=== PATIENT | female | born 1980 | race Caucasian/White ===

== ENCOUNTER → 2017-08-07 | Outpatient (CLI) | payer OTHER ==
[~2017-08-07] MED LIST: BIRTH CONTROL PILLS; HYDACE5 PO; IBUP800 PO; META800 PO
[2017-08-08 10:34] LABS: Candida species (DNA Probe) Positive (NEGATIVE); G. vaginalis (DNA Probe) Negative (NEGATIVE); T. vaginalis (DNA Probe) Negative (NEGATIVE)
[2017-08-09 12:58] LABS: HPV Genotype 16 Not Detected (NOTDET); HPV Genotype 18 Not Detected (NOTDET)
[2017-08-16 12:09] LABS: HPV High Risk Other Not Detected (NOTDET)
== END ==
LOC: LAB SHORT 18:41 → LAB 18:41
PROVIDERS: Advanced Practice Midwife
DX: Z01.419 Encounter for gynecological examination (general) (routine) without abnormal findings (principal); N76.0 Acute vaginitis
CPT/HCPCS: 87480; 87510; 87624; 87660; G0123

== ENCOUNTER 2022-02-09 06:19 | Inpatient (IN) | payer OTHER ==
[2022-02-08 09:51] LABS: BASOPHILS ABSOLUTE AUTO 0.15 K/mm3 (0.00-0.23); BASOPHILS PERCENT AUTO 2 % (0-2); EOSINOPHILS ABSOLUTE AUTO 0.68 K/mm3 (0.00-0.68); EOSINOPHILS PERCENT AUTO 7 % (0-6); Hematocrit 43.9 % (33.0-51.0); Hemoglobin 14.5 g/dL (11.5-16.0); IMMATURE GRAN ABSOLUTE AUTO 0.03 K/mm3 (0.00-0.10); IMMATURE GRAN PERCENT AUTO 0 % (0-1); LYMPHOCYTES ABSOLUTE AUTO 1.96 K/mm3 (0.84-5.20); LYMPHOCYTES PERCENT AUTO 20 % (21-46); MONOCYTES PERCENT AUTO 6 % (4-13); Mean Corpuscular HGB 29.3 pg (26.0-34.0); Mean Corpuscular Volume 89 fL (80-100); Mean Platelet Volume 11.2 fL (9.1-12.4); NEUTROPHILS ABSOLUTE AUTO 6.29 K/mm3 (1.96-9.15); NEUTROPHILS PERCENT AUTO 65 % (41-73); Platelet Count 301 K/mm3 (150-400); RDW Coefficient Variation 12.1 % (11.7-14.2); RDW Standard Deviation 39.1 fL (35.1-46.3); Red Blood Cell Count 4.95 M/mm3 (3.80-5.20); White Blood Cell Count 9.71 K/mm3 (4.00-11.30)
[2022-02-08 10:12] LABS: Bun/Creatinine Ratio 19.1 (12.0-20.0); Calcium, Blood 9.2 mg/dL (8.5-10.1); Creatinine, Blood 0.78 mg/dL (0.40-1.00); Potassium, Blood 3.9 mmol/L (3.5-5.5)
[~2022-02-09] VITALS: Ht 157.5 cm; Wt 86.4 kg
--- NOTE | 2022-02-09 07:03 | NUR ---
Ambulatory in Day Surgery History, Chart, Medications and Allergies reviewed before start of procedure. Lungs clear T/O to Auscultation. Pre-Op teaching done. Pt verbalizes understanding.
--- NOTE | 2022-02-09 08:24 | NUR ---
02/09/22 0824 Desi Johns PLACED BY MAITE ALCANTARA, AFTER DRAPES PLACED, PRIOR TO SURGERY START.
--- NOTE | 2022-02-09 10:48 | NUR ---
DR. WALTER AT BS. PT STATES SHE FEELS LIKE SHE IS RASPY BUT NOT TIGHT IN THE LUNGS. POC DISCUSSED. CHEST X-RAY PENDING. PT TO STAY OVER NIGHT FOR OBSERVATION, INCENTIVE SPIROMETER, POSSIBLY MORE BREATHING TREATMENTS.
--- NOTE | 2022-02-09 12:10 | NUR ---
PATIENT ARRIVED TO UNIT VIA GURNEY, STOOD AND AMBULATED TO BATHROOM W/O DIFFICULTY. MINIMAL VAGINAL BLEEDING NOTED. X4 LAP SITES TO ABDOMEN, C/D/I WITH DERMABOND. PATIENT REPORTS ABDOMINAL PAIN 5/10 AT THIS TIME. AMBULATED TO BED WELL WITH MINIMAL ASSISTANCE, K PAD TO BACK. BLOOD PRESSURE REMAINS LOW, PATIENT ASYMPTOMATIC. DENIES BEING LIGHTHEADED OR DIZZY. ORIENTED TO ROOM AND CALL LIGHT.
--- NOTE | 2022-02-09 13:16 | NUR ---
DR ALMANZA GAVE VERBAL ORDERS TO CONSULT HOSPITALIST FOR POSSIBLE ALLERGIC REACTION. TRAINING MGR ENTERED CONSULT AND SPOKE WITH DR ARMANDO, RECEIVED VERBAL ORDERS FOR IV BENADRYL, IV PEPCID, IV SOLUMEDROL, & IV FLUIDS. DR ARMANDO CAME TO BEDSIDE TO ASSESS PATIENT. VITAL SIGNS TAKEN Q15 MINUTES, SEE DOCUMENTATION. PATIENT REMAINS ASYMPTOMATIC OF LOW BP, DENIES SOB/DIFFICULTY BREATHING, ON ROOM AIR. CALL LIGHT IN REACH.
--- NOTE | 2022-02-09 14:13 | NUR ---
PATIENTS BLOOD PRESSURE LOWER AT 75/54 WITH A RECHECK OF 74/51, DR ARMANDO NOTIFIED, GAVE TELEPHONE ORDERS TO GIVE ANOTHER LITER OF FLUIDS WIDE OPEN AND STATED HE WOULD ORDER LABS.
[2022-02-09 14:33] LABS: BASOPHILS ABSOLUTE AUTO 0.04 K/mm3 (0.00-0.23); BASOPHILS PERCENT AUTO 0 % (0-2); EOSINOPHILS ABSOLUTE AUTO 0.01 K/mm3 (0.00-0.68); EOSINOPHILS PERCENT AUTO 0 % (0-6); Hematocrit 41.3 % (33.0-51.0); Hemoglobin 13.2 g/dL (11.5-16.0); IMMATURE GRAN PERCENT AUTO 1 % (0-1); LYMPHOCYTES PERCENT AUTO 3 % (21-46); MONOCYTES ABSOLUTE AUTO 0.16 K/mm3 (0.16-1.47); MONOCYTES PERCENT AUTO 1 % (4-13); Mean Corpuscular HGB 29.3 pg (26.0-34.0); Mean Corpuscular Volume 92 fL (80-100); Mean Platelet Volume 11.3 fL (9.1-12.4); NEUTROPHILS ABSOLUTE AUTO 17.34 K/mm3 (1.96-9.15); NEUTROPHILS PERCENT AUTO 95 % (41-73); Platelet Count 241 K/mm3 (150-400); RDW Coefficient Variation 12.1 % (11.7-14.2); RDW Standard Deviation 40.6 fL (35.1-46.3); White Blood Cell Count 18.25 K/mm3 (4.00-11.30)
[2022-02-09 14:53] LABS: Thyroid Stimulating Hormone 1.26 uIU/mL (0.360-4.800)
--- NOTE | 2022-02-09 15:11 | NUR ---
SEAMING MACHINE OPERATOR FEMI BURGOS WAS NOTIFIED BY DR ARMANDO TO TRANSFER PATIENT TO ICU. LIAN KAHN CALLED REPORT TO ICU. PATIENT WHEELED TO ICU VIA W/C. DR ALMANZA NOTIFIED.
[2022-02-09 15:16] LABS: Albumin, Blood 2.9 g/dL (3.4-5.0); Albumin/Globulin Ratio 1.2 (0.8-1.8); Bilirubin, Total 0.4 mg/dL (0.1-1.0); Bun/Creatinine Ratio 23.6 (12.0-20.0); Creatinine, Blood 0.55 mg/dL (0.40-1.00); Globulin, Blood 2.4 g/dL (2.2-4.0); Potassium, Blood 3.9 mmol/L (3.5-5.5); Total Protein, Blood 5.3 g/dL (6.4-8.2)
[2022-02-09 15:19] LABS: Calcium, Blood 7.2 mg/dL (8.5-10.1)
--- NOTE | 2022-02-09 15:45 | NUR ---
PT ARRIVES TRANSFER FROM SURGICAL FLOOR FOR HIGHER LEVEL OF CARE AFTER PERSISTENT HYPOTENSION S/P ROBOTIC LAPROSCOPIC HYSTERECTOMY. PER PREVIOUS RN, SHE WAS INITIALLY GOING TO BE DC'd AFTER THE PROCEDURE BUT IN PACU, SHE BEGAN TO HAVE RALES, CHEST TIGHTNESS, GIVEN BENADRYL & NEB Tx. ONCE ON SURGICAL FLOOR, PT BEGAN TO HAVE REDNESS TO NECK & CHEST, C/O BLURRED VISION & W/ DEC SBP. SHE WAS TREATED FOR ANAPHYLAXIS W/ IV BENADRYL, PEPCID, SOLUMEDROL, SC EPI, & x2 FLUID BOLUSES W/OUT SIGNIFICANT POSITIVE CHANGE, PROMPTING HER ARRIVAL TO ICU. UPON ARRIVAL PT IS BROUGHT OVER IN WC, TRANSFERS TO BED W/OUT DIFF. APPEARS SLIGHTLY PALE BUT IS A&O, FULLY PARTICIPATES IN ASSESSMENTS & SPEAKS IN FULL SENTENCES. +CONT BUZZSAW OPERATOR, NSR W/ RATE 80s, MAP 60. AFEBRILE. DENIES NAUSEA. PAIN 4/10. REPORTS DIFF W/ VOIDING AFTER SURGERY. MARIAELENA-PAD PLACED UPON ADMIT TO SURGICAL FLOOR IS CLEAN & DRY. PT REPORTS ONLY SCANT BLEEDING POST VOIDING. x4 LAPAROSCOPY SITES CLOSED W/ DERMABOND, APPEAR C/D/I.
--- NOTE | 2022-02-09 16:11 | NUR ---
BLADDER SCAN RESULTS 325mls. REPORTS A "PRESSURE" TO SUPRAPUBIC AREA. PT ABLE TO AMBULATE TO TOILET W/ NO S/Sx OF PAIN, SOB. 200ml UOP. PT REPORTS RELIEF OF PRESSURE. MAP CONTINUES TO BE >65mmHg.
--- NOTE | 2022-02-09 16:30 | NUR ---
UPDATE: DR ALMANZA @ BEDSIDE FOR EVAL. DR ALMANZA ARRIVES TO ASSESS PT AFTER TRANSFER TO ICU. STS THE PT PRESENTS GREAT POST OP. RECENT LAB DRAW GIVES EVIDENCE TO ANAPHYLAXIS, SHE ENCOURAGES PT TO SEE AN SUPERVISOR ROD PLACING ONCE DC'd TO FIND WHAT CAUSED THE REACTION. PT RECEIVES WELL. LEVOPHED ARRIVES @ BEDSIDE W/ PARAMETERS TO INITIATE FOR MAP <65. PT CONTINUES TO BE ASYMPTOMATIC OF HYPOTENSION, VSS, PWD, AMBULATES TO TOILET W/OUT DISTRESS OR BASELINE VS CHANGES. WILL CONTINUE TO MONITOR CLOSELY FOR ACUTE CHANGES.
[2022-02-09 16:51] LABS: Source, Urine Clean Catch
[2022-02-09 16:59] LABS: Appearance, Urine Clear (Clear); Bilirubin, Urine Neg (Neg); Blood, Urine 5+ (Neg); Color, Urine Yellow (P-Yellow); Glucose Qualitative, Urine 2+ (Neg); Ketones, Urine Neg (Neg); Leukocyte Esterase, Urine Neg (Neg); Nitrite, Urine Neg (Neg); Protein, Urine Neg (Neg); Urobilinogen, Urine NORM (Normal)
--- NOTE | 2022-02-09 17:48 | NUR ---
DR MENDEZ CALLS FOR UPDATE ON PT's PROGRESSION. HE EXPLAINS THE PT DID HAVE SOFT BPs IN THE OR & WAS GIVEN PHENYLEPHRINE. HE SUSPECTS THE ROCURONIUM WAS THE INSULTING AGENT & PLACED IT ON THE PT's ALLERGY LIST. GIVEN # TO PRABHA, ADMITTING TURBINE TECHNICIAN, FOR FURTHER UPDATES.
[2022-02-09 18:13] LABS: Bacteria Few /hpf; Mucus Light (0-Heavy); Red Blood Cells, Urine 0-2 /hpf (0-2); Squamous Epithelial Cells Rare /hpf (Few); White Blood Cells, Urine 0-2 /hpf (0-5)
--- NOTE | 2022-02-09 19:03 | NUR ---
UPDATE: CRITICAL LAB RESULT LACTIC 4.6. UNRULY CALLED & UPDATED. ORDERS RECEIVED FOR 1L LR BOLUS x2 & TO INC MAINTENANCE FLUIDS TO 150ml/hr. ORDERS PLACED.
--- NOTE | 2022-02-09 21:12 | NUR ---
ASSUMED CARE AT 1900 PATIENT IS ALERT AND ORIENTED X4. 02 SATS >93% ON RA. DENIES SOB AT THIS TIME. HR SR 90s, BP HYPOTENSIVE WITH SYSTOLIC 70s-80s MAP IN THE 60s. 2L BOLUS LR GIVEN AND RATE INCREASED TO INF TO 150 MLS/HR. BP REMAINS HYPOTENSIVE. DENIES CP BUT SOME ABDOMINAL DISCOMFORT FROM GAS. UP TO TOILET SBA. ABDOMINAL INCISIONS WNL. CALL LIGHT IN REACH. SEE SHIFT ASSESSMENT FOR MORE INFORMATION.
[2022-02-09 21:57] LABS: BASOPHILS ABSOLUTE AUTO 0.02 K/mm3 (0.00-0.23); BASOPHILS PERCENT AUTO 0 % (0-2); EOSINOPHILS ABSOLUTE AUTO 0.01 K/mm3 (0.00-0.68); EOSINOPHILS PERCENT AUTO 0 % (0-6); Hematocrit 34.4 % (33.0-51.0); Hemoglobin 11.8 g/dL (11.5-16.0); IMMATURE GRAN ABSOLUTE AUTO 0.05 K/mm3 (0.00-0.10); IMMATURE GRAN PERCENT AUTO 0 % (0-1); LYMPHOCYTES ABSOLUTE AUTO 0.77 K/mm3 (0.84-5.20); LYMPHOCYTES PERCENT AUTO 5 % (21-46); MONOCYTES ABSOLUTE AUTO 0.54 K/mm3 (0.16-1.47); MONOCYTES PERCENT AUTO 3 % (4-13); Mean Corpuscular HGB 30.6 pg (26.0-34.0); Mean Corpuscular HGB Conc 34.3 g/dL (31.5-36.5); Mean Corpuscular Volume 89 fL (80-100); Mean Platelet Volume 11.5 fL (9.1-12.4); NEUTROPHILS ABSOLUTE AUTO 15.43 K/mm3 (1.96-9.15); NEUTROPHILS PERCENT AUTO 92 % (41-73); Platelet Count 254 K/mm3 (150-400); RDW Coefficient Variation 12.2 % (11.7-14.2); RDW Standard Deviation 39.8 fL (35.1-46.3); Red Blood Cell Count 3.86 M/mm3 (3.80-5.20); White Blood Cell Count 16.82 K/mm3 (4.00-11.30)
--- NOTE | 2022-02-10 01:51 | NUR ---
AFTER 2L BOLUS OF LR INFUSED PATIENT REMAINED HYPOTENSIVE. CALLED HOSPITALIST, LEVOPHED STARTED, OK TO USE IN PERIPHERAL IV FOR LOW DOSE, BLOOD CULTURES ORDERED AND DRAWN, AND REPEAT CBC DONE. CALLED DR. LEMONS AND ABDOINAL CT DONE.
[2022-02-10 03:44] LABS: BASOPHILS ABSOLUTE AUTO 0.05 K/mm3 (0.00-0.23); BASOPHILS PERCENT AUTO 0 % (0-2); EOSINOPHILS ABSOLUTE AUTO 0.01 K/mm3 (0.00-0.68); EOSINOPHILS PERCENT AUTO 0 % (0-6); Hematocrit 35.9 % (33.0-51.0); IMMATURE GRAN ABSOLUTE AUTO 0.22 K/mm3 (0.00-0.10); IMMATURE GRAN PERCENT AUTO 1 % (0-1); LYMPHOCYTES ABSOLUTE AUTO 1.11 K/mm3 (0.84-5.20); LYMPHOCYTES PERCENT AUTO 5 % (21-46); MONOCYTES ABSOLUTE AUTO 0.92 K/mm3 (0.16-1.47); MONOCYTES PERCENT AUTO 4 % (4-13); Mean Corpuscular HGB 29.9 pg (26.0-34.0); Mean Corpuscular HGB Conc 33.4 g/dL (31.5-36.5); Mean Corpuscular Volume 90 fL (80-100); Mean Platelet Volume 11.7 fL (9.1-12.4); NEUTROPHILS ABSOLUTE AUTO 21.22 K/mm3 (1.96-9.15); NEUTROPHILS PERCENT AUTO 90 % (41-73); Platelet Count 289 K/mm3 (150-400); RDW Coefficient Variation 12.3 % (11.7-14.2); RDW Standard Deviation 40.5 fL (35.1-46.3); Red Blood Cell Count 4.01 M/mm3 (3.80-5.20); White Blood Cell Count 23.53 K/mm3 (4.00-11.30)
[2022-02-10 04:11] LABS: Albumin, Blood 2.8 g/dL (3.4-5.0); Albumin/Globulin Ratio 1.2 (0.8-1.8); Bilirubin, Total 0.4 mg/dL (0.1-1.0); Calcium, Blood 8.3 mg/dL (8.5-10.1); Creatinine, Blood 0.59 mg/dL (0.40-1.00); Globulin, Blood 2.4 g/dL (2.2-4.0); Potassium, Blood 4.1 mmol/L (3.5-5.5); Total Protein, Blood 5.2 g/dL (6.4-8.2)
--- NOTE | 2022-02-10 05:55 | NUR ---
SHIFT SUMMARY PATIENT REMAINS ALERT AND ORIENTED X4. 02 SATS 93% ON RA WHILE SLEEPING, DENIES SOB. HR SR 70-90s, BP HYPOTENSIVE, LEVOPHED AT 2 MCG/MIN MOST THE NIGHT, TURNED OFF THIS AM HOWEVER BP TRENDING DOWN AGAIN. PATIENT UP TO TOILET, GOOD URINE OUTPUT. NO BLEEDING NOTICED. INCISIONS WNL. MEDICATED FOR ABDOMINAL PAIN PRN. INDEPENDENT WITH REPOSITIONING. CALL LIGHT IN REACH.
--- NOTE | 2022-02-10 11:00 | NUR ---
UPDATE: DR ALMANZA SIGNING OFF PT's SURGEON, DR ALMANZA CALLS & INFORMS THAT THE PT IS SURGICALLY STABLE, SHE HAD SIGNED OFF YESTERDAY. IF HOSPITALIST BELIEVES HER TO BE SAFE FOR DC HOME, SHE AGREES. DR SIMMONS, HOSPITALIST, CALLED & UPDATED ABOVE. SHE WILL PLACE DC ORDERS. PT UPDATED & WILL BE MADE READY FOR DC SHORTLY. VS REMAIN STABLE, NO ACUTE NEG CHANGES.
--- NOTE | 2022-02-10 12:00 | NUR ---
UPDATE FROM IRIS. DC ORDERS & NEW Rx PLACED. REPEAT LACTIC DRAWN, IF IT IS TRENDING DOWN, PT WILL BE DC HOME. LAB @ BEDSIDE TO DRAW
[2022-02-10] MEDS ORDERED: FAMO20 PO (12:45)
[2022-02-10] MEDS ORDERED: Loratadine10 MG PO (12:46)
[2022-02-10] MEDS ORDERED: Norco 10-325 T1 EACH PO (12:46)
[2022-02-10] MEDS ORDERED: PRED20 PO (12:47)
--- NOTE | 2022-02-10 13:17 | NUR ---
DR WALTER @ BEDSIDE TO DISCUSS CASE W/ PT & HER SPOUSE. PT GIVEN THOROUGH WRITTEN & VERBAL DC INSTRUCTIONS. EDUCATED ON THE IMPORTANCE OF TAKING ALL NEW Rx's PRESCRIBED. GIVEN WRITTEN Rx FOR NORCO. ADVISED TO F/U W/ PRIMARY IN 1 WK & TO BE VIGILANT FOR THE RETURN OF HYPOTENSION SYMPTOMS. PT & SPOUSE APPEAR RECEPTIVE TO EDUCATION & VERB UNDERSTANDING. PT ESCORTED TO VEHICLE VIA WC W/ OUT INCIDENT. OOTD.
== END 2022-02-10 14:01 | disposition home or self-care (01) | DRG 982 ==
LOC: ORSCMMR 06:19 → ORD 07:30 → ORSCMMR 07:30 → SURS 12:09 → ICUE 15:00 → ORSCMMR 21:56 → ICUE 21:57 → ORD 03-02 08:30
PROVIDERS: Internal Medicine; Nurse Practitioner Acute Care; ADMIT Obstetrics & Gynecology
PROC: 0UT7FZZ Resection of Bilateral Fallopian Tubes, Via Natural or Artificial Opening With Percutaneous Endoscopic Assistance (ICD-10-PCS; 2022-02-09)
PROC: 0UTC4ZZ Resection of Cervix, Percutaneous Endoscopic Approach (ICD-10-PCS; 2022-02-09)
PROC: 8E0W4CZ Robotic Assisted Procedure of Trunk Region, Percutaneous Endoscopic Approach (ICD-10-PCS; 2022-02-09)
PROC: 3E033XZ Introduction of Vasopressor into Peripheral Vein, Percutaneous Approach (ICD-10-PCS; 2022-02-09)
PROC: 0UT9FZZ Resection of Uterus, Via Natural or Artificial Opening With Percutaneous Endoscopic Assistance (ICD-10-PCS; principal; 2022-02-09 07:30)
DX: T88.2XXA Shock due to anesthesia, initial encounter (principal); E87.4 Mixed disorder of acid-base balance; N93.8 Other specified abnormal uterine and vaginal bleeding; N92.0 Excessive and frequent menstruation with regular cycle; N99.85 Post endometrial ablation syndrome; N94.10 Unspecified dyspareunia; D72.828 Other elevated white blood cell count; Z79.899 Other long term (current) drug therapy; G43.909 Migraine, unspecified, not intractable, without status migrainosus; F32.A Depression, unspecified; D64.9 Anemia, unspecified; Z98.51 Tubal ligation status; Z98.890 Other specified postprocedural states; T48.1X5A Adverse effect of skeletal muscle relaxants [neuromuscular blocking agents], initial encounter
CPT/HCPCS: 36415; 71045; 74176; 80048; 80053; 81001; 82330; 82533; 83605; 84443; 84703; 85025; 86850; 86900; 86901; 87040; 88307; A9270; J0171; J0610; J0690; J1100; J1200; J1720; J1885; J2250; J2370; J2405; J2704; J2795; J3010; J7030; J7050; J7060; J7120; J7512

== ENCOUNTER 2022-02-13 10:31 | Emergency (ER) | payer OTHER ==
[~2022-02-13] VITALS: Ht 157.5 cm; Wt 85.3 kg
[~2022-02-13 10:31] MED LIST changes: +FAMO20 PO; +Loratadine10 MG PO; +Norco 10-325 T1 EACH PO; +PRED20 PO
[2022-02-13 11:36] LABS: BASOPHILS ABSOLUTE AUTO 0.16 K/mm3 (0.00-0.23); BASOPHILS PERCENT AUTO 1 % (0-2); EOSINOPHILS ABSOLUTE AUTO 0.68 K/mm3 (0.00-0.68); EOSINOPHILS PERCENT AUTO 4 % (0-6); Hematocrit 41.9 % (33.0-51.0); Hemoglobin 13.8 g/dL (11.5-16.0); IMMATURE GRAN ABSOLUTE AUTO 0.09 K/mm3 (0.00-0.10); IMMATURE GRAN PERCENT AUTO 1 % (0-1); LYMPHOCYTES ABSOLUTE AUTO 4.28 K/mm3 (0.84-5.20); LYMPHOCYTES PERCENT AUTO 26 % (21-46); MONOCYTES ABSOLUTE AUTO 1.05 K/mm3 (0.16-1.47); MONOCYTES PERCENT AUTO 6 % (4-13); Mean Corpuscular HGB 30.1 pg (26.0-34.0); Mean Corpuscular HGB Conc 32.9 g/dL (31.5-36.5); Mean Corpuscular Volume 91 fL (80-100); NEUTROPHILS ABSOLUTE AUTO 10.28 K/mm3 (1.96-9.15); NEUTROPHILS PERCENT AUTO 62 % (41-73); Platelet Count 362 K/mm3 (150-400); RDW Coefficient Variation 12.3 % (11.7-14.2); RDW Standard Deviation 40.9 fL (35.1-46.3); Red Blood Cell Count 4.59 M/mm3 (3.80-5.20); White Blood Cell Count 16.54 K/mm3 (4.00-11.30)
[2022-02-13 11:52] LABS: Albumin, Blood 3.5 g/dL (3.4-5.0); Albumin/Globulin Ratio 1.1 (0.8-1.8); Bilirubin, Total 0.3 mg/dL (0.1-1.0); Bun/Creatinine Ratio 17.5 (12.0-20.0); Calcium, Blood 8.9 mg/dL (8.5-10.1); Creatinine, Blood 0.74 mg/dL (0.40-1.00); Globulin, Blood 3.3 g/dL (2.2-4.0); Potassium, Blood 3.4 mmol/L (3.5-5.5); Total Protein, Blood 6.8 g/dL (6.4-8.2)
[2022-02-13 14:10] LABS: Source, Urine Clean Catch
[2022-02-13 14:12] LABS: Appearance, Urine Clear (Clear); Bilirubin, Urine Neg (Neg); Blood, Urine 2+ (Neg); Color, Urine Yellow (P-Yellow); Glucose Qualitative, Urine Neg (Neg); Ketones, Urine Neg (Neg); Leukocyte Esterase, Urine 2+ (Neg); Nitrite, Urine Neg (Neg); Protein, Urine Neg (Neg); Urobilinogen, Urine NORM (Normal)
[2022-02-13 14:18] LABS: Bacteria Few /hpf; Squamous Epithelial Cells Mod /hpf (Few); Transitional Epithelial Cells Rare /hpf (0-Rare)
[2022-02-13] MEDS ORDERED: Lasix40 MG PO (17:48)
[2022-02-13] MEDS ORDERED: K-TAB ER20 ME1 PO (17:48)
== END 2022-02-13 20:23 | disposition home or self-care (01) ==
LOC: ER 10:31
PROVIDERS: Physician Assistant
DX: R60.0 Localized edema (principal); J90 Pleural effusion, not elsewhere classified; E87.70 Fluid overload, unspecified; Z88.8 Allergy status to other drugs, medicaments and biological substances; Z88.5 Allergy status to narcotic agent; Z88.0 Allergy status to penicillin; Z79.899 Other long term (current) drug therapy; Z79.52 Long term (current) use of systemic steroids
CPT/HCPCS: 36415; 71046; 74177; 80053; 81001; 83880; 84484; 85025; 87086; 93005; 93010; 93306; 93970; 96365-59; 96366; 96375; 99284-25; A9270; J1940; J3480; J7030; J7050; Q9967

== ENCOUNTER → 2022-08-04 | Outpatient (CLI) | payer OTHER ==
[~2022-08-04] MED LIST changes: +K-TAB ER20 ME1 PO; +Lasix40 MG PO
[2022-08-04 17:45] LABS: BASOPHILS ABSOLUTE AUTO 0.18 K/mm3 (0.00-0.23); BASOPHILS PERCENT AUTO 1 % (0-2); EOSINOPHILS ABSOLUTE AUTO 0.41 K/mm3 (0.00-0.68); EOSINOPHILS PERCENT AUTO 3 % (0-6); Hematocrit 44.9 % (33.0-51.0); Hemoglobin 15.2 g/dL (11.5-16.0); IMMATURE GRAN ABSOLUTE AUTO 0.05 K/mm3 (0.00-0.10); IMMATURE GRAN PERCENT AUTO 0 % (0-1); LYMPHOCYTES ABSOLUTE AUTO 2.09 K/mm3 (0.84-5.20); LYMPHOCYTES PERCENT AUTO 14 % (21-46); MONOCYTES ABSOLUTE AUTO 0.65 K/mm3 (0.16-1.47); MONOCYTES PERCENT AUTO 5 % (4-13); Mean Corpuscular HGB 29.5 pg (26.0-34.0); Mean Corpuscular HGB Conc 33.9 g/dL (31.5-36.5); Mean Corpuscular Volume 87 fL (80-100); Mean Platelet Volume 11.7 fL (9.1-12.4); NEUTROPHILS ABSOLUTE AUTO 11.15 K/mm3 (1.96-9.15); NEUTROPHILS PERCENT AUTO 77 % (41-73); Platelet Count 373 K/mm3 (150-400); RDW Coefficient Variation 12.1 % (11.7-14.2); RDW Standard Deviation 38.9 fL (35.1-46.3); Red Blood Cell Count 5.16 M/mm3 (3.80-5.20); White Blood Cell Count 14.53 K/mm3 (4.00-11.30)
[2022-08-04 18:33] LABS: Albumin, Blood 4.1 g/dL (3.4-5.0); Albumin/Globulin Ratio 1.4 (0.8-1.8); Bilirubin, Total 0.3 mg/dL (0.1-1.0); Calcium, Blood 9.3 mg/dL (8.5-10.1); Creatinine, Blood 0.59 mg/dL (0.40-1.00); Potassium, Blood 3.5 mmol/L (3.5-5.5); Thyroid Stimulating Hormone 1.78 uIU/mL (0.360-4.800); Total Protein, Blood 7.1 g/dL (6.4-8.2)
== END | disposition home or self-care (01) ==
LOC: LAB SHORT 16:46
PROVIDERS: Nurse Practitioner Family
DX: Z00.00 Encounter for general adult medical examination without abnormal findings (principal); E55.9 Vitamin D deficiency, unspecified
CPT/HCPCS: 80053; 82306; 84443; 85025